=== PATIENT | female | born 1990 | race Caucasian/White ===

== ENCOUNTER 2016-09-12 18:57 | Inpatient (IN) | payer MEDICAID, OTHER ==
[~2016-09-12] VITALS: Ht 170.2 cm; Wt 137.4 kg
[2016-09-12 23:04] VITALS: BP 157/88; PULSE 89; RESP 18; TEMP 97.3; O2SAT 98
[2016-09-12] MEDS ORDERED: MAGNESIUM HYDROXIDE SUSP 30 ML CUP PO PRN (23:15)
[2016-09-12] MEDS ORDERED: traZODone HCL 100 MG TAB PO PRN (23:15)
[2016-09-12] MEDS ORDERED: ALUMINUM/MAGNESIUM/SIMETH 30 ML CUP PO PRN (23:15)
[2016-09-12] MEDS ORDERED: ACETAMINOPHEN 325 MG TAB PO PRN (23:15)
[2016-09-13 06:14] VITALS: BP 138/80; PULSE 96; RESP 17; TEMP 97.1; O2SAT 98
[2016-09-13] MEDS: NICOTINE 21 MG/24 HR PATCH T-DERMAL SCH (09:00)
--- NOTE | 2016-09-13 09:47 | HHI.HP ---
Provisional Diagnosis Admission Date Sep 12, 2016 at 22:30 [place] I. Schizoaffective disorder bipolar type F 25.0 Certification of Person's Competence To Provide Express and Informed Consent I have personally examined Mary Ellen Guzman , a person being served at [facility] on, Sep 13, 2016 09:32. Express and informed consent means consent voluntarily given in writing, by a competent person, after sufficient explanation and disclosure of the subject matter involved to enable the person to make a knowing and willful decision without any element of force, fraud, deceit, duress, or other form of constraint or coercion. This person is 18 years of age or older, is not now known to be incompetent to consent to treatment with a guardian advocate, and does not have a health care surrogate or proxy currently making medical treatment decisions. I have found this person to be one of the following: [xx Competent to provide express and informed consent, as defined above, for voluntary admission to this facility and is competent to provide express and informed consent for treatment. He/she has the consistent capacity to make well reasoned, willful, and knowing decisions concerning his or her medical or mental health treatment. The person fully and consistently understands the purpose of the admission for examination/placement and is fully capable of personally exercising all rights [place] [] Incompetent to provide express and informed consent to voluntary admission, and this is incompetent to provide express and informed consent to treatment. The person must be transferred to involuntary status and a petition for a guardian advocate filed with the Circuit Court. [] Refusing to provide express and informed consent to voluntary admission but is competent to provide express and informed consent for treatment. The person must be discharged or transferred to involuntary status. Form shall be completed within 24 hours of a person's arrival at the receiving facility and filed in the clinical record of each person: 1. Admitted on a voluntary basis 2. Permitted to provide express and informed consent to his/her own treatment 3. Allowed to transfer from involuntary to voluntary status 4. Prior to permitting a person to consent to his or her own treatment after having been previously found incompetent to consent to treatment. History of Present Illness Capacity: Has Capacity HPI Patient is a 26-year-old white female recently moved here from [facility][1] with her mother and 2 small children about 2 weeks ago. She has a history mental illness being treated with both admission to mental health facilities most recently in March of this year and outpatient treatment. Since coming down here missed her scheduled Invega Sustenna injection. She has noted increased depression of vague suicidal ideation and some increase in the auditory hallucinations. She is Hinojosa acted at [facility] in that facility was negative toxicology negative blood alcohol level Hinojosa act written by Dr. Ever Bangura dated 09/12/16 at 1345 hrs. that document reviewed stating basically schizophrenia suicidal ideations auditory hallucinations stating that the patient is having auditory hallucinations which are voices telling her to hurt herself denies a specific plan states history of attempting to harm self. Patient medically cleared transferred here for further care and attention. Patient seen in her room with nurse Loretta. Patient is alert oriented calm cooperative young lady given the above history of of moving from [facility][1] to this area to be closer to family. She show some insight into her disease and it together medication, showing insight into this identification of her mild increase psychotic features. Patient denies any alcohol use at this does state that over week ago she smoked 1 joint to help her with the voices and the suicidality. She is willing to continue her medications, she is calm cooperative willing to stay here voluntarily. Patient denies any physical or sexual abuse as a child denies any other significant alcohol did acknowledge smoking 1 joint about a week ago.. States she has a sister also has mental illness. We did discuss medications we will restart the patient on intake sustain a at 234 mg. We will help bridge of this with adding invading oral at 6 mg daily we'll continue her other psychotropic medications as per the documentation of her [facility] hopeless be a short stay return of the community with follow-up probably through [facility] [place] [facility] Review of Systems Constitutional: DENIES: Diaphoretic episodes, Fatigue, Fever, Weight gain, Weight loss, Chills, Dizziness, Change in appetite, Night Sweats Endocrine: DENIES: Abnorml menstrual pattern, Heat/cold intolerance, Polydipsia , Polyuria, Polyphagia Eyes: DENIES: Blurred vision, Diplopia, Eye inflammation, Eye pain, Vision loss , Photosensitivity, Double Vision Ears, nose, mouth, throat: DENIES: Tinnitus, Hearing loss, Vertigo, Nasal discharge, Oral lesions, Throat pain, Hoarseness, Ear Pain, Running Nose, Epistaxis, Sinus Pain, Toothache, Odynophagia Respiratory: DENIES: Apneas, Cough, Snoring, Wheezing, Hemoptysis, Sputum production, Shortness of breath Cardiovascular: DENIES: Chest pain, Palpitations, Syncope, Dyspnea on Exertion , PND, Lower Extremity Edema, Orthopnea, Claudication Gastrointestinal: DENIES: Abdominal pain, Black stools, Bloody stools, Constipation, Diarrhea, Nausea, Vomiting, Difficulty Swallowing, Anorexia Genitourinary: DENIES: Abnormal vaginal bleeding, Dysmenorrhea, Dyspareunia, Sexual dysfunction, Urinary frequency, Urinary incontinence, Urgency, Hematuria , Dysuria, Nocturia, Vaginal discharge Musculoskeletal: COMPLAINS OF: Neck pain, DENIES: Joint pain, Muscle aches, Stiffness, Joint Swelling, Back pain Integumentary: DENIES: Abnormal pigmentation, Pruritus, Rash, Nail changes, Breast masses, Breast skin changes, Nipple discharge Hematologic/lymphatic: DENIES: Bruising, Lymphadenopathy Immunologic/allergic: DENIES: Eczema, Urticaria Neurologic: DENIES: Abnormal gait, Headache, Localized weakness, Paresthesias, Seizures, Speech Problems, Tremor, Poor Balance Psychiatric: COMPLAINS OF: Mood changes, Hallucinations (denies SI), Suicidal Ideation (denies at this time) Past Psych History Psychological trauma history Denies physical or sexual abuse Violence risk - others (6 mos) Low Violence risk - self (6 mos) Low to medium Substance Abuse History Drugs/Alcohol past 12 months Patient smoked a joint about 1-2 weeks ago Past Family Social History Coded Allergies: No Known Allergies (Unverified , 09/12/16) Past Medical History History scoliosis Current Medications Medications (Trade) Dose Ordered Sig/Liss Route Start Time Stop Time Status Last Admin (Tylenol) 650 mg Q4H PRN PO 09/12/16 23:15 (Milk Of Magnesia Liq) 30 ml DAILY PRN PO 09/12/16 23:15 (Mag-Al Plus Susp Liq) 30 ml Q6H PRN PO 09/12/16 23:15 (Desyrel) 100 mg HS PRN PO 09/12/16 23:15 09/13/16 00:15 (Habitrol 21 Mg Patch.24 Hr) 1 patch DAILY T-DERMAL 09/13/16 09:00 Miscellaneous Information 1 HS T-DERMAL 09/13/16 21:00 Family History Denies history of physical abuse alcohol or drug use and family though a sister the mental health issues Social History Lives with and 2 children and her mother Patient's Strengths (min. 2) Patient verbal irritable [facility] calm cooperative Physical Exam Patient medically cleared and [facility]. At the present time patient sitting quietly in her room on 2700 she is in no acute distress, neck is supple patient no respiratory distress. No complaints of abdominal pain patient move all 4 extremities without difficulty no abnormal motor movements Vital Signs Vital Signs Date Time Temp Pulse Resp B/P Pulse Ox O2 Delivery O2 Flow Rate FiO2 09/13/16 06:14 97.1 96 17 138/80 98 Mental Status Examination Alert oriented heavyset white female calm cooperative with good eye contact occasional small smile Appearance Clean neatly Speech: Unremarkable Memory: Unremarkable Thought Process: Logical, Linear Thought Content: Unremarkable Language Fair Fund of Knowledge Is fair Hallucination Type: Auditory (vague threatening though denies today) Attention and Concentration: Other (fair) Suicidal Ideation: Yes (vague related to her auditory hallucinations) Previous Suicide Attempts: Yes Homicidal Ideation: No Previous Homicide Attempts: No Insight: Fair Judgment: Poor (to fair) Affect: Other (decreased range and intensity) Mood: Euthymic (to somewhat restricted) Motor Activity: Normal gait Assessment & Plan Problem List: (1) Schizoaffective disorder, bipolar type ICD Code: F25.0 Assessment & Plan Estimated LOS: 1-2 days this time patient does meet criteria for inpatient psychiatric hospitalization though I feel chest capacity to sign for the admission of the medications thus I'll lift the Hinojosa act. We'll restart her medications also offering her and vague area 6 mg daily orally along with the Invega Sustenna that will be increased to 234 mg. We'll continue other medications for the documentation from [facility] of the severe short stay and discharge within 1-2 days refer to outpatient care through [facility] act Discharge Planning See above Request HC Surrog/Guard Advoc?: No Kai Hsieh MD Sep 13, 2016 09:47
[2016-09-13 10:14] LABS: BICARBONATE 23.6 MEQ/L (21.0-32.0)
[2016-09-13] MEDS: CYANOCOBALAMIN 1,000 MCG TAB PO SCH (11:15)
[2016-09-13] MEDS: CHOLECALCIFEROL (VIT D3) 1000 UNIT TAB PO SCH (11:15)
[2016-09-13] MEDS: OLANZapine 5 MG TAB PO SCH (11:15)
[2016-09-13] MEDS: PALIPERIDONE ER 6 MG TAB PO SCH (11:30)
[2016-09-13] MEDS ORDERED: PALIPERIDONE PALMITATE 234 MG/1.5 ML SYRINGE IM ONE (11:30)
[2016-09-13] MEDS: DULoxetine HCl DR 60 MG CAP PO SCH (13:08)
[2016-09-13] MEDS: buPROPion HCL 150 MG SUSTAINED RELEASE TAB PO SCH (13:09)
[2016-09-13 18:06] VITALS: BP 138/77; PULSE 70; RESP 18; TEMP 97.5; O2SAT 99
[2016-09-13] MEDS ORDERED: traZODone HCL 100 MG TAB PO SCH (21:00)
[2016-09-13] MEDS ORDERED: PRAZOSIN HCL 5 MG CAP PO SCH (21:00)
[2016-09-13] MEDS ORDERED: REMOVE OLD NICOTINE PATCH T-DERMAL SCH (21:00)
[2016-09-14 06:06] VITALS: BP 114/56; PULSE 113; RESP 17; TEMP 97.1; O2SAT 98
[2016-09-14] MEDS: NICOTINE 21 MG/24 HR PATCH T-DERMAL SCH (09:00)
[2016-09-14] MEDS: DULoxetine HCl DR 60 MG CAP PO SCH (09:52)
[2016-09-14] MEDS: CHOLECALCIFEROL (VIT D3) 1000 UNIT TAB PO SCH (09:52)
[2016-09-14] MEDS: OLANZapine 5 MG TAB PO SCH (09:52)
[2016-09-14] MEDS: buPROPion HCL 150 MG SUSTAINED RELEASE TAB PO SCH (09:52)
[2016-09-14] MEDS: CYANOCOBALAMIN 1,000 MCG TAB PO SCH (09:52)
[2016-09-14] MEDS: PALIPERIDONE ER 6 MG TAB PO SCH (09:54)
[2016-09-14] MEDS ORDERED: PRAZ5 PO (12:33)
[2016-09-14] MEDS ORDERED: VITA10002 PO (12:33)
[2016-09-14] MEDS ORDERED: OLAN5TAB PO (12:33)
[2016-09-14] MEDS ORDERED: INVE6TAB3 PO (12:33)
[2016-09-14] MEDS ORDERED: BUPR150CR PO (12:33)
[2016-09-14] MEDS ORDERED: DULO1CAP3 PO (12:33)
[2016-09-14] MEDS ORDERED: TRAZ100T6 PO (12:33)
[2016-09-14] MEDS ORDERED: VITA1000 PO (12:33)
[2016-09-14] MEDS ORDERED: PALI234P IM (12:37)
--- NOTE | 2016-09-14 12:41 | HHI.DS ---
Psychiatry Discharge Summary Inpatient Psychiatric care?: Yes Advance Directive: No Reason Not Provided: NONE Mental Health AdvanceDirective: No Health Care Proxy: No Admission Admission Date Sep 12, 2016 at 22:30 Admission Diagnosis: (1) Schizoaffective disorder, bipolar type ICD Code: F25.0 Brief History Patient is a 26-year-old white female recently moved here from [facility] with her mother and 2 small children about 2 weeks ago. She has a history mental illness being treated with both admission to mental health facilities most recently in March of this year and outpatient treatment. Since coming down here missed her scheduled Invega Sustenna injection. She has noted increased depression of vague suicidal ideation and some increase in the auditory hallucinations. She is Hinojosa acted at [facility] in that facility was negative toxicology negative blood alcohol level Hinojosa act written by Dr. Ever Bangura dated 09/12/16 at 1345 hrs. that document reviewed stating basically schizophrenia suicidal ideations auditory hallucinations stating that the patient is having auditory hallucinations which are voices telling her to hurt herself denies a specific plan states history of attempting to harm self. Patient medically cleared transferred here for further care and attention. Patient seen in her room with nurse Loretta. Patient is alert oriented calm cooperative young lady given the above history of of moving from [facility] to this area to be closer to family. She show some insight into her disease and it together medication, showing insight into this identification of her mild increase psychotic features. Patient denies any alcohol use at this does state that over week ago she smoked 1 joint to help her with the voices and the suicidality. She is willing to continue her medications, she is calm cooperative willing to stay here voluntarily. Patient denies any physical or sexual abuse as a child denies any other significant alcohol did acknowledge smoking 1 joint about a week ago.. States she has a sister also has mental illness. We did discuss medications we will restart the patient on intake sustain a at 234 mg. We will help bridge of this with adding invading oral at 6 mg daily we'll continue her other psychotropic medications as per the documentation of her [facility] hopeless be a short stay return of the community with follow-up probably through [facility] [place] act Tobacco Use In Past 30 Days: 5 or More Cigarettes/Day Alcohol Use: Never Hospital Course Patient show compliance with her medications including accepting the injection although the sustain a. She slept well last night. Better today now that she is back on a medication and her injectable. She denies suicidality homicidality voices or visions. At this time patient longer meets criteria for inpatient psychiatric hospitalization patient was discharged today to herself with Rx 1 month to follow-up [facility] Results Blood Pressure 114 / 56 Vital Signs Date Time Temp Pulse Resp B/P Pulse Ox O2 Delivery O2 Flow Rate FiO2 09/14/16 06:06 97.1 113 17 114/56 98 Laboratory Tests Test 09/13/16 09:09 Random Glucose 133 MG/DL (74-106) Summary of Procedures None done Pending results at discharge: No Medications # of Antipsychotic meds at D/C: 0 Approp Antipsych med options 1 - Minimum of three failed multiple trials of monotherapy. 2 - Documented plan to taper to monotherapy due to previous use of multiple meds OR cross-taper in progress at D/C. 3 - Documentation of augmentation of Clozapine. 4 - Justification other than those listed in allowable values 1-3, document here : Discharge Discharge Date: Sep 14, 2016 Discharge Diagnosis: (1) Schizoaffective disorder, bipolar type Diagnosis: Principal ICD Code: F25.0 Mental Status Exam at Disch Alert oriented white female she is calm cooperative. She is normoactive. Mood is euthymic to slightly restricted with slight decrease range intensity of affect. Speech rate and rhythm within normal limits though no formal thought disorders. No auditory or visual hallucinations. No delusions. Insight and judgment is poor to fair. Cognition grossly intact Pt Condition on Discharge: Stable Discharge Disposition: Discharge Home Discharge Instructions Diet Instructions: As Tolerated, No Restrictions Activities you can perform: Regular-No Restrictions Scheduled Appointment: [facility] Appointment Date: Sep 15, 2016 Appointment Time: 7:30am Discharge Time > 30 minutes Discharge/Advance Care Plan Health Problems: (1) Schizoaffective disorder, bipolar type Goals to promote your health * To prevent worsening of your condition and complications * To maintain your health at the optimal level Directions to meet your goals Take your medications as prescribed Follow your dietary instruction Follow activity as directed Keep your appointments as scheduled Take your immunizations and boosters as scheduled If your symptoms worsen call your PCP, if no PCP go to Urgent Care Center or Emergency Room For 25/09 questions related to your inpatient stay or results of tests pending at discharge, please contact Dr. Kai Hsieh at Smoking is Dangerous to Your Health. Avoid second hand smoking Kai Hsieh MD Sep 14, 2016 12:41
== END 2016-09-14 13:30 | disposition home or self-care (01) | DRG 885 ==
LOC: H270 22:30
PROVIDERS: ADMIT Psychiatry & Neurology Psychiatry; ATTEND Psychiatry & Neurology Psychiatry
DX: F25.0 Schizoaffective disorder, bipolar type (principal); F12.90 Cannabis use, unspecified, uncomplicated
CPT/HCPCS: 80048; J2426